=== PATIENT | male | born 1960 | race Two or more races ===

== ENCOUNTER → 2021-02-27 | Day surgery (SDC) | payer OTHER ==
[~2021-02-27] MED LIST: ATORVASTATIN CA40 MG PO; CLONAZEPAM0.5 MG PO; COZAAR100 MG PO; FENOFIB PO; FOLIC ACID PO; LITHIUM CARBON600 MG PO; PERCOCET 5-3251 EACH PO; PLAVIX75 MG PO; TOLTERODINE TART4 MG PO
== END | disposition home or self-care (01) ==
LOC: ADM 02-20 08:30 → CIR.AMB 08:30
PROVIDERS: ATTEND Surgery
DX: N52.03 Combined arterial insufficiency and corporo-venous occlusive erectile dysfunction (principal); N52.31 Erectile dysfunction following radical prostatectomy; Z20.822 Contact with and (suspected) exposure to COVID-19
CPT/HCPCS: 54405; C1813